=== PATIENT | male | born 1975 | race Caucasian/White ===

== ENCOUNTER 2017-11-02 17:19 | Emergency (ER) | payer BC ==
[2017-11-02 17:56] VITALS: BP 145/88
--- NOTE | 2017-11-02 18:12 | ED ---
Throat Pain/Nasal Congestion - HPI Summary HPI Summary: 42 yr old male with cough, nasal congestion, sore throat. Onset three days ago. He has pressure in sinuses, and also sore throat that bothers him most. He has allergies to penicillin derivatives. No SOB. - History of Current Complaint Chief Complaint: UCRespiratory Time Seen by Provider: 11/02/17 17:59 - Allergies/Home Medications Allergies/Adverse Reactions: Allergies Allergy/AdvReac Type Severity Reaction Status Date / Time Penicillins Allergy Hives Verified 11/02/17 17:57 Home Medications: Home Medications Allopurinol TAB* [Zyloprim 100 MG TAB*] 100 mg PO DAILY 11/02/17 [History Confirmed 11/02/17] Ibuprofen TAB* [Motrin TAB* 600 MG] 600 mg PO Q8H PRN 11/02/17 [History Confirmed 11/02/17] Pantoprazole Sodium 20 mg PO DAILY 11/02/17 [History Confirmed 11/02/17] amLODIPine TAB* [Norvasc 5 mg TAB*] 5 mg PO DAILY 11/02/17 [History Confirmed ] PMH/Surg Hx/FS Hx/Imm Hx Cardiovascular History: Reports: Hx Hypertension Infectious Disease History: No Infectious Disease History: Denies: Traveled Outside the [place] in Last 30 Days - Family History Known Family History: Positive: None - Social History Occupation: Employed Full-time Lives: With Family Alcohol Use: Occasionally Substance Use Type: Reports: None Smoking Status (MU): Former Smoker Review of Systems Positive: Fever, Chills Positive: Sore Throat, Nasal Discharge Negative: Chest Pain Positive: Cough All Other Systems Reviewed And Are Negative: Yes Physical Exam Triage Information Reviewed: Yes Vital Signs On Initial Exam: Initial Vitals Temp Pulse Resp BP Pulse Ox 100.8 F 90 17 145/88 99 11/02/17 17:50 11/02/17 17:50 11/02/17 17:50 11/02/17 17:50 11/02/17 17:50 Vital Signs Reviewed: Yes Appearance: Positive: Well-Appearing, No Pain Distress Skin: Positive: Warm, Skin Color Reflects Adequate Perfusion Head/Face: Positive: Normal Head/Face Inspection Eyes: Positive: EOMI ENT: Positive: Normal ENT inspection, Pharyngeal erythema, Nasal congestion, TMs normal, Sinus tenderness Neck: Positive: Nontender Respiratory/Lung Sounds: Positive: Clear to Auscultation, Breath Sounds Present Cardiovascular: Positive: RRR. Negative: Murmur Abdomen Description: Positive: Nontender Musculoskeletal: Positive: Strength/ROM Intact Neurological: Positive: Sensory/Motor Intact, Alert, Oriented to Person Place, Time, CN Intact II-III Psychiatric: Positive: Normal - Hector Coma Scale Best Eye Response: 4 - Spontaneous Best Motor Response: 6 - Obeys Commands Best Verbal Response: 5 - Oriented Coma Scale Total: 15 Diagnostics - Vital Signs Vital Signs Temp Pulse Resp BP Pulse Ox 11/02/17 17:50 100.8 F 90 17 145/88 99 - Laboratory Lab Statement: Any lab studies that have been ordered have been reviewed, and results considered in the medical decision making process. EENT Course/Dx - Course Course Of Treatment: 42 yr old with SInus symptoms and sore throat. Penicillin allergies. Rx with zithromax. FU PMD for BP check. - Diagnoses Provider Diagnoses: Sinusitis, Sore throat Discharge - Sign-Out/Discharge Documenting (check all that apply): Discharge/Admit/Transfer - Discharge Plan Condition: Good Disposition: HOME Prescriptions: Azithromycin TAB* [Zithromax TAB (Z-PATRIA) 250 mg #6 tabs] 2 tab PO .TODAY, THEN 1 DAILY #1 patria Patient Education Materials: Sinusitis (ED), Hypertension (ED) Referrals: Non Staff,Doctor [Primary Care Provider] - [facility] [Outside] - Billing Disposition and Condition Condition: GOOD Disposition: HOME
== END 2017-11-02 18:12 | disposition home or self-care (01) ==
LOC: UCCORT 17:19
DX: J32.9 Chronic sinusitis, unspecified (principal); J02.9 Acute pharyngitis, unspecified; Z87.891 Personal history of nicotine dependence; Z88.0 Allergy status to penicillin
CPT/HCPCS: 99202; G0463